=== PATIENT | female | born 1980 | race Caucasian/White ===

== ENCOUNTER 2018-03-05 07:52 | Outpatient (CLI) | payer BC | END 2018-03-05 07:53 | disposition home or self-care (01) | LOC: BICMAMMO 07:52 | PROVIDERS: ATTEND Family Medicine | DX: Z12.31 Encounter for screening mammogram for malignant neoplasm of breast (principal) | CPT/HCPCS: 77063; 77067 ==

== ENCOUNTER 2019-03-06 08:27 | Outpatient (CLI) | payer BC ==
--- NOTE | 2019-03-06 08:55 | MMO ---
Bilateral MAMMO Bilat Screen [facility]. CLINICAL HISTORY: Patient is 39 years old and is seen for screening. The patient has no family history of breast cancer. The patient has no personal history of cancer. VIEWS: The views performed were: bilateral craniocaudal with tomosynthesis and bilateral mediolateral oblique with tomosynthesis. FILMS COMPARED: The present examination has been compared to a prior imaging study performed at [facility] on 03/05/2018. MAMMOGRAM FINDINGS: The breasts are heterogeneously dense, which could obscure a lesion on mammography. There are no suspicious masses, suspicious calcifications, or new areas of architectural distortion. IMPRESSION: THERE IS NO MAMMOGRAPHIC EVIDENCE OF MALIGNANCY. A ROUTINE FOLLOW-UP MAMMOGRAM IN 1 YEAR IS RECOMMENDED. THE RESULTS OF THIS EXAM WERE SENT TO THE PATIENT. ACR BI-RADS Category 1 - Negative MAMMOGRAPHY NOTE: 1. A negative mammogram report should not delay a biopsy if a dominant of clinically suspicious mass is present. 2. Approximately 10% to 15% of breast cancers are not detected by mammography. 3. Adenosis and dense breasts may obscure an underlying neoplasm. Reported by: JORDAN DRISCOLL MD Electonically Signed: [id number]
== END 2019-03-06 08:28 | disposition home or self-care (01) ==
LOC: BICMAMMO 08:27
PROVIDERS: ATTEND Family Medicine
DX: Z12.31 Encounter for screening mammogram for malignant neoplasm of breast (principal)
CPT/HCPCS: 77063; 77067

== ENCOUNTER 2020-01-03 11:01 | Outpatient (CLI) | payer BC | END 2020-01-03 11:02 | disposition home or self-care (01) | LOC: DTY/OP 11:01 | PROVIDERS: ATTEND Family Medicine | DX: E78.2 Mixed hyperlipidemia (principal) | CPT/HCPCS: 97802 ==

== ENCOUNTER 2021-04-02 09:50 | Outpatient (CLI) | payer BC | END 2021-04-02 09:51 | disposition home or self-care (01) | LOC: BICRAD 09:50 | PROVIDERS: ATTEND Podiatrist | DX: M25.572 Pain in left ankle and joints of left foot (principal); M19.072 Primary osteoarthritis, left ankle and foot ==

== ENCOUNTER 2023-05-12 08:16 | Outpatient (CLI) | payer BC | END 2023-05-12 08:17 | disposition home or self-care (01) | LOC: BICMAMMO 08:16 | PROVIDERS: ATTEND Physician Assistant | DX: Z12.31 Encounter for screening mammogram for malignant neoplasm of breast (principal) | CPT/HCPCS: 77063; 77067 ==

== ENCOUNTER 2023-06-06 08:33 | Outpatient (CLI) | payer BC | END 2023-06-06 08:34 | disposition home or self-care (01) | LOC: BICMRI 08:33 | PROVIDERS: ATTEND Orthopaedic Surgery | DX: M23.91 Unspecified internal derangement of right knee (principal); S83.241A Other tear of medial meniscus, current injury, right knee, initial encounter; M94.261 Chondromalacia, right knee; M25.461 Effusion, right knee ==

== ENCOUNTER 2023-07-24 13:28 | Outpatient (CLI) | payer BC ==
[2023-07-24 15:11] LABS: #Basophils 0.1 10x3/uL (0.0-0.2); #Eosinphils 0.2 10x3/uL (0.0-0.5); #Monocytes 0.8 10x3/uL (0.0-1.1); #Neutrophils 4.9 10x3/uL (1.5-8.4); %Basophils 0.8 % (0.0-2.0); %Eosinophils 3.1 % (0.0-6.0); %Lymphocytes 23.3 % (18.0-47.0); %Monocytes 9.7 % (0.0-10.0); %Neutrophils 62.5 % (40.0-75.0); BHCG - Serum Negative (NEGATIVE); Hematocrit 41.3 % (34.9-44.5); Hemoglobin 14.5 g/dL (12.0-15.5); Mean Corpuscular HGB CONC 35.1 g/dL (32.0-36.0); Mean Corpuscular Volume 88.4 fl (81.6-98.3); Mean Platelet Volume 9.4 fl (7.4-10.4); Platelet Count 439 10x3/uL (150-450); Pregs Control Background? CLEAR/WHITE (CLR/WHITE); Pregs Control Bar Appear? YES (CONTROL BAR); Red Blood Cell (RBC) Count 4.67 10x6/uL (3.90-5.03); White Blood Cell (WBC) Count 7.8 10x3/uL (3.5-10.5)
[2023-07-24 15:15] LABS: Anion Gap 11 mmol/L (10-20); BUN (Urea Nitrogen) 16 mg/dL (7.0-18.7); Calc. Creatinine Clearance 0 mL/min (70-130); Carbon Dioxide 23 mmol/L (22-29); Chloride 106 mmol/L (98-107); Estimated GFR 89; Glucose 89 mg/dL (70-105); Sodium 136 mmol/L (136-145)
== END 2023-07-24 13:29 | disposition home or self-care (01) ==
LOC: LABBT 13:28
PROVIDERS: ATTEND Orthopaedic Surgery
DX: Z01.812 Encounter for preprocedural laboratory examination (principal); S83.231A Complex tear of medial meniscus, current injury, right knee, initial encounter
CPT/HCPCS: 80048; 84703; 85025

== ENCOUNTER 2023-11-21 11:23 | Outpatient (CLI) | payer BC | END 2023-11-21 11:24 | disposition home or self-care (01) | LOC: BICRAD 11:23 | PROVIDERS: ATTEND Podiatrist | DX: M19.072 Primary osteoarthritis, left ankle and foot (principal); M19.071 Primary osteoarthritis, right ankle and foot ==

== ENCOUNTER 2024-05-17 13:57 | Outpatient (CLI) | payer BC | END 2024-05-17 13:58 | disposition home or self-care (01) | LOC: BICMAMMO 13:57 | PROVIDERS: ATTEND Nurse Practitioner Family | DX: Z12.31 Encounter for screening mammogram for malignant neoplasm of breast (principal) | CPT/HCPCS: 77063; 77067 ==

== ENCOUNTER 2025-05-27 08:46 | Outpatient (CLI) | payer BC | END 2025-05-27 08:47 | disposition home or self-care (01) | LOC: BICMAMMO 08:46 | PROVIDERS: ATTEND Nurse Practitioner Family | DX: Z12.31 Encounter for screening mammogram for malignant neoplasm of breast (principal); R92.333 Mammographic heterogeneous density, bilateral breasts | CPT/HCPCS: 77063; 77067 ==